=== PATIENT | female | born 1960 | race Caucasian/White ===

== ENCOUNTER 2016-12-12 21:10 | Emergency (ER) | payer OTHER ==
[~2016-12-12] VITALS: Ht 162.6 cm; Wt 85.7 kg
[2016-12-12 21:42] VITALS: BP 120/68
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
--- NOTE | 2016-12-12 22:40 | NUR ---
Patient ambulated to bed 05.
--- NOTE | 2016-12-12 22:53 | NUR ---
Dr. Choudhury evaluating patient at bedside.
[2016-12-12 23:26] VITALS: BP 112/62
--- NOTE | 2016-12-12 23:26 | NUR ---
Patient discharged with v/s stable. Written and verbal after care instructions given and explained. Patient verbalized understanding. Ambulatory with steady gait. All questions addressed prior to discharge. Advised to follow up with PMD.
== END 2016-12-12 23:26 | disposition home or self-care (01) ==
LOC: MED 21:10
DX: S69.92XA Unspecified injury of left wrist, hand and finger(s), initial encounter (principal); W46.1XXA Contact with contaminated hypodermic needle, initial encounter; Y93.89 Activity, other specified; Y92.89 Other specified places as the place of occurrence of the external cause; Y99.8 Other external cause status

== ENCOUNTER 2017-01-13 10:13 | Emergency (ER) | payer OTHER ==
[~2017-01-13] VITALS: Ht 160 cm; Wt 85.7 kg
[2017-01-13 10:28] VITALS: BP 130/69
--- NOTE | 2017-01-13 10:39 | NUR ---
PATIENT PRESENTS TO ED WITH left shoulder pain . PT STATES denies injury . DENIES N/V/D; SKIN IS PINK/WARM/DRY; AAOX4 WITH EVEN AND STEADY GAIT; LUNGS CLEAR BL; HR EVEN AND REGULAR; PT DENIES ANY FEVER, CP, SOB, OR COUGH AT THIS TIME; PATIENT STATES PAIN OF 10/10 AT THIS TIME; VSS; PATIENT POSITIONED FOR COMFORT; HOB ELEVATED; BEDRAILS UP X2; BED DOWN. ER MD MADE AWARE OF PT STATUS.
[2017-01-13] MEDS ORDERED: KETOROLAC 60 MG/2 ML VIAL IM ONE (11:30)
--- NOTE | 2017-01-13 11:33 | NUR ---
pt to x-ray via wheel chair
--- NOTE | 2017-01-13 11:44 | NUR ---
returned from x-ray
[2017-01-13 12:45] VITALS: BP 133/83
== END 2017-01-13 12:45 | disposition home or self-care (01) ==
LOC: MED 10:13
DX: M25.512 Pain in left shoulder (principal)
CPT/HCPCS: 73030; 96372; 99284; J1885

== ENCOUNTER 2017-01-15 12:43 | Emergency (ER) | payer OTHER ==
[~2017-01-15] VITALS: Ht 162.6 cm; Wt 81.6 kg
[2017-01-15 12:50] VITALS: BP 141/71
--- NOTE | 2017-01-15 12:57 | NUR ---
Patient ambulated to bed 05.
--- NOTE | 2017-01-15 13:02 | NUR ---
56/F HERE FOR HEADACHE WITH N/V, AND GEN WEAKNESS STARTING THIS MORNING. URINE DIP NEGATIVE. ER MD MADE AWARE. PT AAOX4 WITH EVEN AND STEADY GAIT. MILD WEAKNESS NOTED BILAT. PT SAFETY AND COMFORT MEASURES PROVIDED.
--- NOTE | 2017-01-15 13:11 | NUR ---
Dr. Anna evaluating patient at bedside.
--- NOTE | 2017-01-15 13:30 | NUR ---
20G TO LFA. IV PATENT AND INTACT. MEDS GIVEN PER NOV PT TIBURCIO WELL.
[2017-01-15] MEDS: diphenhydrAMINE 50 MG/ML VIAL IVP ONE (13:32)
[2017-01-15] MEDS: METOCLOPRAMIDE 10 MG/2 ML INJ VIAL IVP ONE (13:32)
[2017-01-15] MEDS: NACL 0.9% 1,000 ML IV ONE (13:32)
[2017-01-15 14:24] VITALS: BP 133/68
--- NOTE | 2017-01-15 14:25 | NUR ---
Patient discharged with v/s stable. Written and verbal after care instructions given and explained. Patient alert, oriented and verbalized understanding of instructions. Ambulatory with to car WITH DAUGHTER. All questions addressed prior to discharge. ID band removed. Patient advised to follow up with PMD. Rx of ZOFRAN given. Patient educated on indication of medication including possible reaction and side effects. Opportunity to ask questions provided and answered.
== END 2017-01-15 14:25 | disposition home or self-care (01) ==
LOC: MED 12:44
DX: R51 Headache (principal); R11.2 Nausea with vomiting, unspecified; R53.1 Weakness; Z90.710 Acquired absence of both cervix and uterus
CPT/HCPCS: 81002; 81025; 96374; 96375; 99284; J1200; J2765; J7030